=== PATIENT | male | born 1995 | race African-American/Black ===

== ENCOUNTER 2021-04-16 16:42 | Emergency (ER) | payer OTHER ==
[2021-04-16 17:28] VITALS: BP 142/87; PULSE 102; TEMP 98.4; BMI 27.7
== END 2021-04-16 18:37 | disposition home or self-care (01) ==
LOC: JER 16:42 → JERFT 16:42
DX: S60.032A Contusion of left middle finger without damage to nail, initial encounter (principal); W22.8XXA Striking against or struck by other objects, initial encounter
CPT/HCPCS: 73140-TC-RT-FY; 99283-25

== ENCOUNTER 2023-01-30 20:06 | Emergency (ER) | payer OTHER ==
[2023-01-30 20:24] VITALS: BP 117/58; PULSE 63; RESP 20; TEMP 98.1; BMI 29.0
[2023-01-30] MEDS ORDERED: IBUPROFEN 600 MG TABLET (FP) PO ONE ×2 (21:14→21:17)
[2023-01-30] MEDS ORDERED: AMOX TR/POT CLAV 875MG/125MG TABLETS (FP) PO ONE (21:14)
[2023-01-30] MEDS ORDERED: AMOX TR/POT CLAV 875MG/125MG TABLETS (FP) ONE (21:17)
== END 2023-01-30 21:27 | disposition home or self-care (01) ==
LOC: JER 20:06
DX: R22.0 Localized swelling, mass and lump, head (principal)
CPT/HCPCS: 99283-25